=== PATIENT | male | born 1960 | race Caucasian/White ===

== ENCOUNTER → 2018-02-06 | Outpatient (CLI) | payer BC, OTHER ==
[~2018-02-06] MED LIST: AMOXICILLIN 50500 MG PO; HYDROCHLOROTH12.5 MG PO; NORCO 5-325 TA1 EACH PO; ZANTAC 150MG T150 M1 PO
== END ==
LOC: ULTRA 01-31 09:21
DX: I95.9 Hypotension, unspecified (principal); R55 Syncope and collapse